=== PATIENT | female | born 1965 | race African-American/Black ===

== ENCOUNTER 2018-05-14 13:18 | Inpatient (IN) | payer OTHER ==
[~2018-05-14] VITALS: Ht 157.5 cm; Wt 103.9 kg
[2018-05-14] MEDS: POTASSIUM CHLORIDE 10 MEQ TABLET.ER. PO SCH ×2 (08:00→17:00)
[~2018-05-14 13:18] MED LIST: [UNRECOGNIZED DRUG - REMARK]
[2018-05-14 19:03] VITALS: BP 145/104
[2018-05-14] MEDS ORDERED: LISI1TAB5 PO (19:46)
[2018-05-14] MEDS ORDERED: FUROSEMIDE 40 MG/4 ML VIAL. IVP ONE (21:15)
--- NOTE | 2018-05-14 21:17 | EKG ---
[facility] [address] [place] [address] Test Date: 2018-05-14 Test Time: 21:13:06 Pat Name: DANETTE VILLALBA Department: Room: 262 1 Gender: M City Driver: OBED : 1965 Requested By: KYLAH WALKER Order Number: [id number] Reading MD: Randy Parekh MD Measurements Intervals Gunter Rate: 115 P: 34 DC: 104 QRS: 64 QRSD: 78 T: -68 QT: 358 QTc: 497 Interpretive Statements SINUS TACHYCARDIA LEFT ATRIAL ABNORMALITY Electronically Signed On 05-26-2018 21:27:34 CDT by Randy Parekh MD
[2018-05-14 22:01] LABS: BASO # 0.1 x10^3/uL (0.0-0.2); BASO % 1 % (0-3); EOS # 0.1 x10^3/uL (0.0-0.7); EOS % 2 % (0-3); HEMATOCRIT 39.2 % (39.0-53.0); HEMOGLOBIN 12.1 g/dL (13.0-17.5); LYMPH # 1.9 x10^3/uL (1.0-4.8); LYMPH % 35 % (24-48); MEAN CORPUSCULAR HEMOGLOBIN 24 pg (25-35); MEAN CORPUSCULAR HGB CONC 31 g/dL (31-37); MEAN CORPUSCULAR VOLUME 77 fL (79-100); MONO # 0.6 x10^3/uL (0.0-1.1); MONO % 10 % (0-9); NEUT # 2.7 x10^3uL (1.8-7.7); NEUT % 51 % (31-73); PLATELET COUNT 187 x10^3/uL (140-400); RED BLOOD COUNT 5.11 x10^6/uL (4.30-5.70); WHITE BLOOD COUNT 5.3 x10^3/uL (4.0-11.0)
[2018-05-14 22:19] LABS: ALBUMIN 2.1 g/dL (3.4-5.0); ALBUMIN/GLOBULIN RATIO 0.7 (1.0-1.7); CALCIUM 8.2 mg/dL (8.5-10.1); CREATININE 0.8 mg/dL (0.7-1.3); GFR 122.4; POTASSIUM 3.6 mmol/L (3.5-5.1); TOTAL BILIRUBIN 0.6 mg/dL (0.2-1.0); TOTAL PROTEIN 5.3 g/dL (6.4-8.2)
[2018-05-14 22:49] VITALS: BP 147/103
--- NOTE | 2018-05-14 23:25 | NUR ---
Patient had a 26 beat of tachycardia and contacted Dr. Hickman at [phone] and no new orders and continue as protocol.
[2018-05-15 03:23] VITALS: BP 142/101
[2018-05-15 05:11] LABS: CALCIUM 8.3 mg/dL (8.5-10.1); CREATININE 0.8 mg/dL (0.7-1.3); GFR 122.4; POTASSIUM 3.8 mmol/L (3.5-5.1)
[2018-05-15 07:59] VITALS: BP 162/99
[2018-05-15] MEDS: POTASSIUM CHLORIDE 10 MEQ TABLET.ER. PO SCH ×3 (08:00→16:41)
[2018-05-15] MEDS: LISINOPRIL 10 MG TABLET PO SCH (08:32)
[2018-05-15] MEDS: FUROSEMIDE 20 MG/2 ML VIAL. IVP SCH ×3 (08:33→16:41)
--- NOTE | 2018-05-15 08:42 | NUR ---
cleared eMAR from yesterday
--- NOTE | 2018-05-15 10:29 | PDOC ---
Provider Note Provider Note Pt seen.H&P dictated.#[id number]. KYLAH WALKER MD May 15, 2018 10:29
[2018-05-15] MEDS ORDERED: METOPROLOL TART IMMED RELEASE 25 MG TABLET. PO SCH (11:00)
[2018-05-15 11:10] VITALS: BP 149/86
[2018-05-15] MEDS: ENOXAPARIN 40 MG/0.4 ML SYRINGE. SQ SCH ×2 (11:14→20:51)
--- NOTE | 2018-05-15 11:32 | PDOC2 ---
PONCHO BALLARD LEGAL ADMINISTRATIVE ASSISTANT 05/15/18 1132: CARDIAC CONSULT DATE OF CONSULT Date of Consult DATE: 05/15/18 TIME: 11:29 REASON FOR CONSULT Reason for Consult: New onset CHF REFERRING PHYSICIAN Referring Physician: Dr. Prakash SOURCE Source: Chart review, Patient HISTORY OF PRESENT ILLNESS HISTORY OF PRESENT ILLNESS This is a 52 yo female who presented as a direct admit from Dr. Prakash secondary to shortness of breath. Patient reports having significant lower extremity swelling for the last couple of weeks. Has progressively worsened. No has edema in her upper thighs and abdomen. Denies any chest pain. Has been experiencing orthopnea and ABEBE for the last couple of weeks. Denies any SOA sitting up at rest. No dizziness, diaphoresis, palpitations, or nausea/ vomiting. No history of heart disease or recent illness/fevers. PAST MEDICAL HISTORY Cardiovascular: HTN Pulmonary: No pertinent hx CENTRAL NERVOUS SYSTEM: Other (no pertinent hx) GI: No pertinent hx Heme/Onc: No pertinent hx Hepatobiliary: No pertinent hx Psych: No pertinent hx Musculoskeletal: Other (no pertinent hx) Rheumatologic: No pertinent hx Infectious disease: No pertinent hx ENT: No pertinent hx Renal/: No pertinent hx Endocrine: No pertinent hx Dermatology: No pertinent hx PAST SURGICAL HISTORY Past Surgical History: No pertinent history FAMILY HISTORY Family History: Hypertension SOCIAL HISTORY Smoke: No ALCOHOL: none Drugs: None Lives: with Family CURRENT MEDICATIONS CURRENT MEDICATIONS Current Medications Medications (Trade) Dose Ordered Sig/Cindy Route PRN Reason Start Time Stop Time Status Last Admin Dose Admin Furosemide (Lasix) 40 mg 1X ONCE IVP 05/14/18 21:15 05/14/18 21:16 DC 05/14/18 21:48 Furosemide (Lasix) 20 mg BID92 IVP 05/15/18 09:00 05/15/18 08:33 Lisinopril (Prinivil) 10 mg DAILY PO 05/15/18 09:00 05/15/18 08:32 Metoprolol Tartrate (Lopressor) 25 mg BID PO 05/15/18 11:00 05/15/18 11:14 Enoxaparin Sodium (Lovenox 40mg Syringe) 40 mg BID SQ 05/15/18 11:00 05/15/18 11:14 ALLERGIES ALLERGIES: Coded Allergies: No Known Drug Allergies (Unverified , 04/29/14) ROS Review of System 14 point ROS conducted with pertinent positives noted above in HPI. PHYSICAL EXAM General: Alert, Oriented X3, Cooperative, No acute distress HEENT: Atraumatic Lungs: Other (diminished bases) Heart: Regular rate, Normal S1, Normal S2, Other (+ JVD, 2/6 systolic murmur ) Abdomen: Other (ascites) Extremities: Other (2+ bilateal LE edema to thigh level) Skin: No significant lesion Neuro: Normal speech, Sensation intact Psych/Mental Status: Mental status NL, Mood NL MUSCULOSKELETAL: No deformity VITALS VITALS Vital Signs Date Time Temp Pulse Resp B/P (MAP) Pulse Ox O2 Delivery O2 Flow Rate FiO2 05/15/18 11:14 114 149/86 05/15/18 11:10 97.7 22 97 Room Air 97.7 LABS Lab: Laboratory Tests Test 05/14/18 21:03 05/14/18 21:30 05/15/18 04:20 Glucose (Fingerstick) 101 mg/dL (70-99) White Blood Count 5.3 x10^3/uL (4.0-11.0) Red Blood Count 5.11 x10^6/uL (4.30-5.70) Hemoglobin 12.1 g/dL (13.0-17.5) Hematocrit 39.2 % (39.0-53.0) Mean Corpuscular Volume 77 fL (79-100) Mean Corpuscular Hemoglobin 24 pg (25-35) Mean Corpuscular Hemoglobin Concent 31 g/dL (31-37) Red Cell Distribution Width 18.0 % (11.5-14.5) Platelet Count 187 x10^3/uL (140-400) Neutrophils (%) (Auto) 51 % (31-73) Lymphocytes (%) (Auto) 35 % (24-48) Monocytes (%) (Auto) 10 % (0-9) Eosinophils (%) (Auto) 2 % (0-3) Basophils (%) (Auto) 1 % (0-3) Neutrophils # (Auto) 2.7 x10^3uL (1.8-7.7) Lymphocytes # (Auto) 1.9 x10^3/uL (1.0-4.8) Monocytes # (Auto) 0.6 x10^3/uL (0.0-1.1) Eosinophils # (Auto) 0.1 x10^3/uL (0.0-0.7) Basophils # (Auto) 0.1 x10^3/uL (0.0-0.2) Sodium Level 146 mmol/L (136-145) 150 mmol/L (136-145) Potassium Level 3.6 mmol/L (3.5-5.1) 3.8 mmol/L (3.5-5.1) Chloride Level 111 mmol/L (98-107) 113 mmol/L (98-107) Carbon Dioxide Level 29 mmol/L (21-32) 32 mmol/L (21-32) Anion Gap 6 (6-14) 5 (6-14) Blood Urea Nitrogen 14 mg/dL (8-26) 12 mg/dL (8-26) Creatinine 0.8 mg/dL (0.7-1.3) 0.8 mg/dL (0.7-1.3) Estimated GFR (Cockcroft-Gault) 122.4 122.4 BUN/Creatinine Ratio 18 (6-20) Glucose Level 105 mg/dL (70-99) 90 mg/dL (70-99) Calcium Level 8.2 mg/dL (8.5-10.1) 8.3 mg/dL (8.5-10.1) Magnesium Level 1.9 mg/dL (1.8-2.4) Total Bilirubin 0.6 mg/dL (0.2-1.0) Aspartate Amino Transf (AST/SGOT) 46 U/L (15-37) Alanine Aminotransferase (ALT/SGPT) 55 U/L (16-63) Alkaline Phosphatase 61 U/L (46-116) BS-Qbx-F-Type Natriuretic Peptide 6306 pg/mL (0-124) Total Protein 5.3 g/dL (6.4-8.2) Albumin 2.1 g/dL (3.4-5.0) Albumin/Globulin Ratio 0.7 (1.0-1.7) Thyroid Stimulating Hormone (TSH) 1.030 uIU/mL (0.358-3.74) ASSESSMENT/PLAN ASSESSMENT/PLAN 1. Acute systolic HF 2. Cardiomyopathy (new finiding); Preliminary echo noted significantly depressed LV systolic function 3. Hypertension; mildly elevated 4. Tachycardia, sinus Recommendations ASA Diuresis check lipids Add BB NPO Given new finding of LV dysfunction, recommend cardiac cath to r/o ischemic etiology of CMP. Discussed r/b/a with patient and she is agreeable. Will proceed with later this afternoon GABBY NEVES MD 05/15/182: CARDIAC CONSULT ASSESSMENT/PLAN ASSESSMENT/PLAN Patient seen and examined. Agree with above nurse practitioner note with the following comments 52-year-old woman presenting with new onset heart failure symptoms. She has significant mitral and tricuspid regurgitation. Coronary angiogram was unremarkable. Plan for optimization of medical therapy and likely outpatient referral to [facility] for advanced heart failure therapies. PONCHO BALLARD APRN May 15, 2018 11:32 GABBY NEVES MD May 15, 2018 18:12
[2018-05-15] MEDS: ASPIRIN ENTERIC COATED 81 MG TABLET.DR. PO SCH (11:51)
--- NOTE | 2018-05-15 12:32 | CARD ---
MR#: [id number] Date of Study: 05/15/2018 Ordering Physician: KYLAH WALKER, Referring Physician: KYLAH WALKER, Tech: Isamar Mc RDCS APPROVED REPORT EXAM: Two-dimensional and M-mode echocardiogram with Doppler and color Doppler. Other Information Quality : Good INDICATION Peripheral Edema Congestive Heart Failure RISK FACTORS Obesity 2D DIMENSIONS RVDd4.2 (2.9-3.5cm)Left Atrium(2D)5.7 (1.6-4.0cm) IVSd1.0 (0.7-1.1cm)Aortic Root(2D)2.4 (2.0-3.7cm) LVDd6.0 (3.9-5.9cm)LVOT Diameter2.0 (1.8-2.4cm) PWd1.4 (0.7-1.1cm)LVDs5.6 (2.5-4.0cm) FS (%) 6.7 %SV26.3 ml LVEF(%)14.7 (>50%) Aortic Valve AoV Peak Hans.155.6cm/sAoV VTI19.5cm AO Peak GR.9.7mmHgLVOT Peak Hans.112.0cm/s AO Mean GR.6mmHgAVA (VMAX)2.31cm2 ARTURO (VTI)2.43bn8DG P 1/2 Owkb302qh Mitral Valve MV E Biiwalvt044.1cm/sMV DECEL JVKG53xo MV A Fsoctupv70.4cm/sE/A Ratio1.5 Tricuspid Valve TR P. Cuzeinym287lq/sRAP YZDGVJQL16juGs TR Peak Gr.56ysZuGYDU99zpHo Pulmonary Vein S1 Hfunzrku40.6cm/sD2 Gstrhfhh06.1cm/s LEFT VENTRICLE The Left Ventricle is moderately dilated. There is mild concentric left ventricular hypertrophy. Left ventricle ejection fraction is severely impaired. The Ejection Fraction is 10-15%. There is severe g lobal hypokinesis of the left ventricle. Tissue Doppler imaging reveals severe left ventricular diast olic dysfunction. RIGHT VENTRICLE The right ventricle is moderately dilated. The right ventricular systolic function is normal. ATRIA The left atrium is severely dilated. The right atrium is moderately dilated. The interatrial septum i s intact with no evidence for an atrial septal defect or patent foramen ovale as noted on 2-D or Dopp ler imaging. AORTIC VALVE The aortic valve is normal in structure and function. Doppler and Color Flow revealed mild aortic reg urgitation. There is no significant aortic valvular stenosis. MITRAL VALVE The mitral valve is normal in structure and function. There is no evidence of mitral valve prolapse. There is no mitral valve stenosis. Doppler and Color-flow revealed severe mitral regurgitation. TRICUSPID VALVE The tricuspid valve is normal in structure and function. Doppler and Color Flow revealed moderate tri cuspid regurgitation. There is severe pulmonary hypertension. The PA pressure was estimated at 73 mmH g. There is no tricuspid valve stenosis. PULMONIC VALVE The pulmonic valve is not well visualized. Doppler and Color Flow revealed mild pulmonic valvular reg urgitation. There is no pulmonic valvular stenosis. GREAT VESSELS The aortic root is normal in size. The ascending aorta is normal in size. The IVC is dilated and muna apses <50% with inspiration. PERICARDIAL EFFUSION There is no evidence of significant pericardial effusion. Critical Notification Physician Notified Date: 05/15/2018 Time: 11:28 Physician Name:ASH Don Critical Value: Yes <Conclusion> Left ventricle ejection fraction is severely impaired. The Ejection Fraction is 10-15%. The Left Ventricle is moderately dilated. Doppler and Color-flow revealed severe mitral regurgitation. Doppler and Color Flow revealed moderate tricuspid regurgitation. There is severe pulmonary hypertens ion. The PA pressure was estimated at 73 mmHg. Signed by : Randy Parekh, Electronically Approved : 05/15/2018 12:31:28
--- NOTE | 2018-05-15 13:23 | RAD ---
EXAM: Chest, 2 views. HISTORY: Congestive heart failure. COMPARISON: 04/29/2014 FINDINGS: 2 views of the chest are obtained. There is diffuse central predominant increased interstitial opacity. There is no pleural effusion or pneumothorax. There is cardiomegaly. IMPRESSION: Diffuse increased central predominant interstitial opacity and enlargement of the cardiac silhouette due to pulmonary congestion. Electronically signed by: Rupali Chilel MD (05/15/2018 1:20 PM) [place] [id number]
[2018-05-15 14:24] LABS: PROTHROMBIN TIME PATIENT 14.4 SEC (11.7-14.0)
--- NOTE | 2018-05-15 14:34 | NUR ---
SS following for discharge planning. SS reviewed pt chart. Pt is from home with spouse and is currently on room air. No discharge needs noted at this time. SS will continue to follow for pending discharge needs.
[2018-05-15] MEDS ORDERED: LIDOCAINE 1% PF 2 ML VIAL. ONE (14:56)
[2018-05-15] MEDS ORDERED: IOHEXOL 300 MG/ML 100ML VIAL. ONE (14:57)
[2018-05-15] MEDS ORDERED: VERAPAMIL 5 MG/2 ML VIAL. ONE (15:05)
[2018-05-15] MEDS ORDERED: fentaNYL PF VIAL 100 MCG/2 ML VIAL ONE (15:05)
[2018-05-15] MEDS ORDERED: NITROGLYCERIN 200 MCG/2 ML SYRINGE FOR CATH/VASC LAB. ONE (15:05)
[2018-05-15] MEDS ORDERED: MIDAZOLAM HCL/PF 2 MG/2 ML VIAL. ONE (15:05)
[2018-05-15] MEDS ORDERED: HEPARIN for IV BOLUS 10,000 UNIT/10 ML VIAL. ONE (15:05)
[2018-05-15] MEDS ORDERED: IODIXANOL 320 MG/ML 100 ML VIAL. IART ONE (15:30)
[2018-05-15] MEDS ORDERED: LIDOCAINE 1% PF 2 ML VIAL. INJ ONE (15:30)
[2018-05-15] MEDS ORDERED: fentaNYL PF VIAL 100 MCG/2 ML VIAL IV ONE (15:30)
[2018-05-15] MEDS ORDERED: HEPARIN for IV BOLUS 10,000 UNIT/10 ML VIAL. IART ONE (15:30)
[2018-05-15] MEDS ORDERED: CONTRAST GIVEN. MC PRN (15:30)
[2018-05-15] MEDS ORDERED: MIDAZOLAM HCL/PF 2 MG/2 ML VIAL. IV ONE (15:30)
[2018-05-15] MEDS ORDERED: NITROGLYCERIN 200 MCG/2 ML SYRINGE FOR CATH/VASC LAB. IART ONE (15:30)
[2018-05-15] MEDS ORDERED: VERAPAMIL 5 MG/2 ML VIAL. IART ONE (15:30)
[2018-05-15 15:37] VITALS: BP 125/87
--- NOTE | 2018-05-15 15:57 | PDOC ---
MODERATE SEDATION ASSESSMENT RISKS/ALTERNATIVES Risks/Alternatives Risks and alternatives of this type of sedation and procedure discussed with: RISK/ALTERNATIVES: Patient H & P ON CHART H & P H & P on chart and reviewed for co-morbid conditions and appropriate labs. H&P ON CHART: Yes STATUS PREG STATUS ASSESSED: N/A MEDS/ALLERGIES REVIEWED Meds/Allergies Reviewed Medications and Allergies including time and route of recently administered narcotics and sedatives. MEDS/ALLERGIES REVIEWED: Yes ASA RATING ASA RATING: III AIRWAY ASSESSMENT Airway Assessment Airway patency, oral function limitations, presence of caps, crowns, dentures, partials, and ability to extend neck assessed. AIRWAY ASSESSMENT: Yes MALLAMPATI SCORE MALLAMPATI SCORE: II PRE-SEDATION ASSESSMENT PRE-SEDATION ASSESSMENT: Yes (late entry) GABBY NEVES MD May 15, 2018 15:57
[2018-05-15] MEDS ORDERED: FUROSEMIDE 40 MG/4 ML VIAL. IVP ONE (16:00)
[2018-05-15] MEDS ORDERED: 0.9 % SODIUM CHLORIDE 10 ML DISP.SYRIN. IV PRN (16:00)
[2018-05-15] MEDS ORDERED: NITROGLYCERIN SUBLINGUAL 0.4 MG BOTTLE OF 25. SL PRN (16:00)
--- NOTE | 2018-05-15 16:27 | NUR ---
pt already has IVP lasix on board. no need for this 1x dose
--- NOTE | 2018-05-15 16:30 | NUR ---
pt returned to floor at 1545 via bed in stable condition. pt is alert and oriented. pt is not complaining of any pain at this time. pt has TR band on right wrist. pt is set up on frequent vital signs. will continue to monitor.
[2018-05-15] MEDS: SPIRONOLACTONE 25 MG TABLET PO SCH (16:41)
--- NOTE | 2018-05-15 17:27 | CARD ---
MR#: [id number] Date of Study: 05/15/2018 Ordering Physician: PONCHO BALLARD, Referring Physician: KYLAH WALKER Tech: RT Tirso (R) APPROVED REPORT Technologist: RT Tirso (R) Nurse: Alis Shipman R.N. Procedure(s) performed: Moderate sedation: 24 minutes C, Coronary angiography HISTORY : The patient is a 52 year-old female with a history of . INDICATION The indication(s) include : valvular heart disease, acute systolic heart failure. [facility] Clinical Frailty Scale [facility] Clinical Frailty Scale: Severely Frail Heart Failure Heart Failure: Yes If Yes, Newly Diagnosed: Yes If Yes, HF Type: Diastolic Systolic If Yes, NYHA Class: Class III CASE TECHNIQUE During this case, Fluoroscopy and low osmolar contrast were used for imaging. PROCEDURE NARRATIVE INFORMED CONSENT: After explaining the risks and benefits of the procedure and alternatives, informed consent was obtained. The patient was brought electively to the cardiac catheterization lab. A timeout was performed confi rming the patient's name, date of , procedure, and site of procedure. All necessary personnel w ere wearing the appropriate protective equipment and radiation monitor devices. (See nursing notes for medications administered). ACCESS: The right wrist was sterilely prepped and draped in the usual fashion. The right wrist was infiltrat ed with 1 mL of 2% lidocaine for subcutaneous anesthesia. A 6 German Terumo glide sheath was inserte d into the right radial artery without difficulty. CORONARY ANGIOGRAPHY: Right and left coronary angiography was performed using a 6Fr TIG 4.0 catheter. Left ventricular en d diastolic pressure was obtained with a pigtail catheter and pullback was performed after left ventr iculography. All catheter exchanges and advancements were performed over a guidewire. CLOSURE: At case completion the right radial sheath was removed and a Terumo radial band was applied with 13 m l of air. COMPLICATIONS: The patient tolerated the procedure well and there were no immediate complications. FINDINGS: HEMODYNAMICS: LVEDP 30 mm Hg No gradient on LV to aortic pullback. AO: 110/70 LEFT VENTRICULOGRAM: Deferred due to known severe LV dysfunction. CORONARY ANGIOGRAPHY: LM is a large caliber vessel with normal angiographic appearance. LAD is a large caliber vessel with normal angiographic appearance. D1 is a moderate caliber vessel with normal angiographic apeparance. LCx is a moderate caliber non-dominant vessel with normal angiographic appearance. OM1 is a moderate caliber vessel with normal angiographic appearance. RCA is a large caliber dominant vessel with normal angiographic appearance. RPDA and RPL are moderate caliber vessels with normal angiographic appearance. Conclusion 1. Severely elevated left sided filling pressures. 2. No significant coronary disease. Recommendations Aggressive heart failure medical regimen Due to severe valvular disease, she may benefit from out patient HF clinic evaluation for considerati on of MitraClip. Signed by : Randy Parekh, Electronically Approved : 05/15/2018 17:27:07
[2018-05-15] MEDS: METOPROLOL SUCC 24HR ER 50 MG TAB.ER.24H. PO SCH (18:15)
--- NOTE | 2018-05-15 18:20 | HP ---
ADMIT DATE: 05/14/2018 REASON FOR ADMISSION TO THE HOSPITAL: Shortness of breath, swelling of lower extremities, 30-pound weight gain. HISTORY OF PRESENT ILLNESS: The patient is a 52-year-old female. The patient had not seen me in the office for last 3 years and she came to the office with complaints of shortness of breath, weight gain at least 30 pounds, has severe swelling in the lower extremities and she was complaining of shortness of breath, no chest pain, was admitted to the hospital for congestive heart failure further workup. PAST MEDICAL HISTORY: Hypertension, arthritis. PAST SURGICAL HISTORY: No major surgical history. ALLERGIES: None. MEDICATIONS: She has not taken any medication for the last 3 years. PERSONAL HISTORY: Denies smoking, alcohol, drug abuse. FAMILY HISTORY: Positive for hypertension, heart disease. REVIEW OF SYSTEMS: Complains of shortness of breath. Denies any chest pain. Some swelling of lower extremities, hard for her to walk around and sleep at nighttime. PHYSICAL EXAMINATION: VITAL SIGNS: At the time of admission shows temperature 97, pulse 124, respirations 16, blood pressure 145/104, 94% on room air. HEENT: Head is atraumatic. Pupils equal. Oral cavity: No congestion. NECK: Supple. Thyroid not enlarged. JVD not elevated. CHEST: Symmetrical. CARDIOVASCULAR: S1, S2 with a 3/6 murmur at the base of the heart. LUNGS: Crackles at the base. ABDOMEN: Soft, no mass palpable. EXTERNAL GENITALIA: No Cantu. RECTAL: Deferred. EXTREMITIES: 2 to 3+ edema all the way up to the thighs starting from the feet, pitting. NEUROLOGIC: No focal deficits noted. Moves all extremities. LABORATORY DATA: Shows a white count of 5, hemoglobin 12, platelets 187. INR is 1.2. Electrolytes show sodium 146, potassium 3.6, chloride 111, bicarbonate 29, BUN 14, creatinine 0.8, glucose 105 and TSH 1.0. BNP was more than 6000. Chest x-ray shows congestive heart failure. FINAL IMPRESSION: 1. New onset of congestive heart failure. 2. A 30-pound weight gain with 3+ edema and shortness of breath. PLAN: The patient was admitted to the hospital for aggressive evaluation. Echocardiogram, Cardiology consult, chest x-ray, EKG, IV Lasix and see how the patient's condition improves. DVT prevention with Lovenox. KYLAH WALKER MD DR: PAUL/diony JOB#: [id number] / [id number]
[2018-05-15 19:00] VITALS: BP 112/81
[2018-05-15 23:00] VITALS: BP 125/60
[2018-05-16 00:01] VITALS: BP 125/60
--- NOTE | 2018-05-16 02:41 | RAD ---
Bilateral lower extremity venous Doppler dated 05/15/2018. No comparison available. Clinical indication: Edema and swelling. FINDINGS: Grayscale, color-flow and spectral waveform analysis performed to include the deep venous system of both lower extremity. Normal compressibility, phasicity and augmentation of flow throughout. No filling defects are seen. IMPRESSION: No evidence of lower extremity deep vein thrombosis. Electronically signed by: Raghav Griggs MD (05/16/2018 2:38 AM) [facility] [place]
[2018-05-16 03:00] VITALS: BP 124/85
[2018-05-16 05:52] LABS: CREATININE 0.8 mg/dL (0.6-1.0); GFR 90.8
[2018-05-16 07:00] VITALS: BP 123/79
[2018-05-16] MEDS: METOPROLOL SUCC 24HR ER 50 MG TAB.ER.24H. PO SCH (08:27)
[2018-05-16] MEDS: POTASSIUM CHLORIDE 10 MEQ TABLET.ER. PO SCH (08:27)
[2018-05-16] MEDS: ASPIRIN ENTERIC COATED 81 MG TABLET.DR. PO SCH (08:27)
[2018-05-16] MEDS: SPIRONOLACTONE 25 MG TABLET PO SCH (08:28)
[2018-05-16] MEDS: LISINOPRIL 10 MG TABLET PO SCH (08:28)
[2018-05-16] MEDS: ENOXAPARIN 40 MG/0.4 ML SYRINGE. SQ SCH (08:31)
[2018-05-16] MEDS: FUROSEMIDE 20 MG/2 ML VIAL. IVP SCH (08:31)
[2018-05-16 11:05] VITALS: BP 125/81
--- NOTE | 2018-05-16 11:41 | PDOC ---
PROGRESS NOTES Subjective Subjective feels better ,want to go home Objective Objective Vital Signs Date Time Temp Pulse Resp B/P (MAP) Pulse Ox O2 Delivery O2 Flow Rate FiO2 05/16/18 11:05 97.5 95 20 125/81 (96) 94 Room Air 97.5 05/16/18 07:00 2.0 Intake and Output 05/16/18 07:00 Intake Total 1440 ml Balance 1440 ml Intake Oral 1440 ml # Voids 5 Physical Exam Abdomen: Other (ascites) Heart: Regular rate, Normal S1, Normal S2, Other (+ JVD, 2/6 systolic murmur ) Extremities: Other (2+ bilateal LE edema) General: Alert, Oriented X3, Cooperative, No acute distress HEENT: Atraumatic Lungs: Other (diminished bases) MUSCULOSKELETAL: No deformity Neuro: Normal speech, Sensation intact Psych/Mental Status: Mental status NL, Mood NL Skin: No significant lesion Assessment Assessment FINAL IMPRESSION: 1. New onset of congestive heart failure. 2. A 30-pound weight gain with 3+ edema and shortness of breath. PLAN: cardiac cath normal coronaries. severe MR.on ECHO ,inc PA pressure medical management. d/c home today. echo 20% EJF Comment Review of Relevant I have reviewed the following items whit (where applicable) has been applied. Labs Laboratory Tests Test 05/15/18 13:45 05/16/18 04:30 Prothrombin Time 14.4 SEC (11.7-14.0) Prothromb Time International Ratio 1.2 (0.8-1.1) Sodium Level 140 mmol/L (136-145) Potassium Level 4.0 mmol/L (3.5-5.1) Chloride Level 109 mmol/L (98-107) Carbon Dioxide Level 22 mmol/L (21-32) Anion Gap 9 (6-14) Blood Urea Nitrogen 13 mg/dL (7-20) Creatinine 0.8 mg/dL (0.6-1.0) Estimated GFR (Cockcroft-Gault) 90.8 Glucose Level 97 mg/dL (70-99) Calcium Level 8.0 mg/dL (8.5-10.1) Triglycerides Level 67 mg/dL (0-150) Cholesterol Level 125 mg/dL (0-200) LDL Cholesterol, Calculated 71 mg/dL (0-100) VLDL Cholesterol, Calculated 13 mg/dL (0-40) Non-HDL Cholesterol Calculated 84 mg/dL (0-129) HDL Cholesterol 41 mg/dL (40-60) Cholesterol/HDL Ratio 3.0 Medications Current Medications Aspirin (Ecotrin) 81 mg [id number] PO Last administered on 05/16/18at 08:27; Start 05/15/18 at 12:00 Fentanyl Citrate (Fentanyl 2ml Vial) 50 mcg 1X ONCE IV Last administered on 05/15/18at 15:31; Start 05/15/18 at 15:30; Stop 05/15/18 at 15:31; Status DC Fentanyl Citrate (Fentanyl 2ml Vial) 100 mcg STK-MED ONCE .ROUTE ; Start at 15:05; Stop 05/15/18 at 15:06; Status DC Furosemide (Lasix) 40 mg 1X ONCE IVP ; Start 05/15/18 at 16:00; Stop 05/15/18 at 16:01; Status DC Furosemide (Lasix) 40 mg [id number] IVP Last administered on 05/16/18at 08:31; Start 05/15/18 at 16:00 Heparin Sodium (Porcine) (Heparin Sodium) 2,500 unit 1X ONCE IART Last administered on 05/15/18at 15:32; Start 05/15/18 at 15:30; Stop 05/15/18 at 15:31; Status DC Heparin Sodium (Porcine) (Heparin Sodium) 10,000 unit STK-MED ONCE .ROUTE ; Start 05/15/18 at 15:05; Stop 05/15/18 at 15:06; Status DC Heparin Sodium/ Sodium Chloride 1,000 ml @ As Directed STK-MED ONCE .ROUTE ; Start 05/15/18 at 14:57; Stop 05/15/18 at 14:58; Status DC Heparin Sodium/ Sodium Chloride (HEPARIN for ARTERIAL LINE FLUSH) 1,000 unit 1X ONCE IART Last administered on 05/15/18at 15:29; Start 05/15/18 at 15:30; Stop 05/15/18 at 15:31; Status DC Heparin Sodium/ Sodium Chloride (HEPARIN for ARTERIAL LINE FLUSH) 1,000 unit 1X ONCE IART Last administered on 05/15/18at 15:29; Start 05/15/18 at 15:30; Stop 05/15/18 at 15:31; Status DC Info (CONTRAST GIVEN -- Rx MONITORING) 1 each PRN DAILY PRN MC SEE COMMENTS; Start 05/15/18 at 15:30; Stop 05/17/18 at 15:29 Iodixanol (Visipaque 320) 100 ml 1X ONCE IART Last administered on 05/15/18at 15 :29; Start 05/15/18 at 15:30; Stop 05/15/18 at 15:31; Status DC Iohexol (Omnipaque 300 Mg/ml) 100 ml STK-MED ONCE .ROUTE ; Start 05/15/18 at 14: 57; Stop 05/15/18 at 14:58; Status DC Lidocaine HCl (Xylocaine-Mpf 1% 2ml Vial) 2 ml 1X ONCE INJ Last administered on 05/15/18at 15:30; Start 05/15/18 at 15:30; Stop 05/15/18 at 15:31; Status DC Lidocaine HCl (Xylocaine-Mpf 1% 2ml Vial) 2 ml STK-MED ONCE .ROUTE ; Start at 14:56; Stop 05/15/18 at 14:57; Status DC Metoprolol Succinate (Toprol Xl) 50 mg DAILY PO Last administered on 05/16/18at 08:27; Start 05/15/18 at 18:00 Midazolam HCl (Versed) 1 mg 1X ONCE IV Last administered on 05/15/18at 15:30; Start 05/15/18 at 15:30; Stop 05/15/18 at 15:31; Status DC Midazolam HCl (Versed) 2 mg STK-MED ONCE .ROUTE ; Start 05/15/18 at 15:05; Stop 05/15/18 at 15:06; Status DC Nitroglycerin (Nitroglycerin) 200 mcg 1X ONCE IART Last administered on at 15:29; Start 05/15/18 at 15:30; Stop 05/15/18 at 15:31; Status DC Nitroglycerin (Nitroglycerin) 200 mcg STK-MED ONCE .ROUTE ; Start 05/15/18 at 15: 05; Stop 05/15/18 at 15:06; Status DC Nitroglycerin (Nitrostat) 0.4 mg PRN Q5MIN PRN SL CHEST PAIN; Start 05/15/18 at 16:00; Stop 05/15/18 at 16:04; Status DC Sodium Chloride (Normal Saline Flush) 3 ml QSHIFT PRN IV AFTER MEDS AND BLOOD DRAWS; Start 05/15/18 at 16:00 Spironolactone (Aldactone) 25 mg DAILY PO Last administered on 05/16/18at 08:28; Start 05/15/18 at 16:00 Verapamil HCl (Verapamil) 2.5 mg 1X ONCE IART Last administered on 05/15/18at 15 :31; Start 05/15/18 at 15:30; Stop 05/15/18 at 15:31; Status DC Verapamil HCl (Verapamil) 5 mg STK-MED ONCE .ROUTE ; Start 05/15/18 at 15:05; Stop 05/15/18 at 15:06; Status DC Vitals/I & O Vital Sign - Last 24 Hours 05/15/18 05/15/18 05/15/18 05/15/18 15:31 15:31 15:37 18:15 Pulse 88 87 87 Resp 21 22 B/P (MAP) 125/87 Pulse Ox 95 92 O2 Delivery Nasal Cannula Nasal Cannula O2 Flow Rate 2.0 2.0 05/15/18 05/15/18 05/15/18 05/16/18 19:00 19:58 23:00 03:00 Temp 98.2 97.7 97.8 98.2 97.7 97.8 Pulse 101 93 64 Resp 18 18 18 B/P (MAP) 112/81 (91) 125/60 (81) 124/85 (98) Pulse Ox 94 99 99 O2 Delivery Room Air Room Air Room Air Room Air 05/16/18 05/16/18 05/16/18 05/16/18 07:00 08:00 08:27 08:28 Temp 97.4 97.4 Pulse 95 64 64 Resp 20 B/P (MAP) 123/79 (94) 123/79 123/79 Pulse Ox 95 O2 Delivery Room Air Room Air O2 Flow Rate 2.0 05/16/18 11:05 Temp 97.5 97.5 Pulse 95 Resp 20 B/P (MAP) 125/81 (96) Pulse Ox 94 O2 Delivery Room Air Intake and Output 05/15/18 05/15/18 05/16/18 15:00 23:00 07:00 Intake Total 1060 ml 380 ml Balance 1060 ml 380 ml KODURI,VINAYA K MD May 16, 2018 11:40
[2018-05-16] MEDS ORDERED: LISI10TA2 PO (11:45)
[2018-05-16] MEDS ORDERED: FURO-69 PO (11:45)
[2018-05-16] MEDS ORDERED: METO50TA4 PO (11:45)
[2018-05-16] MEDS ORDERED: ASPI-612 PO (11:45)
[2018-05-16] MEDS ORDERED: SPIR25TA PO (11:45)
--- NOTE | 2018-05-16 12:49 | PDOC ---
CARDIOLOGY PROGRESS NOTE SUBJECTIVE: No acute events. Reports continued swelling and dyspnea OBJECTIVE: Vital SIgns: Vital Signs Date Time Temp Pulse Resp B/P (MAP) Pulse Ox O2 Delivery O2 Flow Rate FiO2 05/16/18 11:05 97.5 95 20 125/81 (96) 94 Room Air 97.5 05/16/18 07:00 2.0 I & O Intake and Output 05/16/18 06:59 Intake Total 1440 ml Balance 1440 ml Intake Oral 1440 ml # Voids 5 Objective: She is up and walking in the room 3+ LE edema present Protrubent obese abdomen CURRENT MEDICATIONS: Toprol XL Lisinopril spironolactone DIAGNOSTIC TESTING: Cr stable ASSESSMENT: 1. Acute on chronic systolic HF likely due to valvular disease/NICM PLAN: 1. Patient wants to go home but would likely benefit from another day of inpt diuresis. 2. If being discharged, will start Lasix 40mg daily and f/u in the office in 1 week. 3. Will refer to [facility] on an outpt basis for Mitraclip/transplant eval. I discussed with the patient about 2L water restriction, daily weights, the gravity of her current situation. Will have nurse re-emphasize at [place]. GABBY NEVES MD May 16, 2018 12:49
--- NOTE | 2018-05-16 14:06 | NUR ---
Discharge Note: DARIUS VILLALBA [facility] Discharge instructions and discharge home medications reviewed with Patient and a copy given. All questions have been answered and understanding verbalized. Education was given to patient with her sister present. It is not clear how much the patient understands about her condition but her sister and I spoke with the patient for approximately 15 minutes about discharge plan and medications and the importance in continuing to follow up with Dr. Prakash and Dr. Parekh. She agreed with plan of care and is happy to leave.
[2018-05-17 00:12] LABS: HEMOGLOBIN A1C 6.1 % (4.8-5.6)
--- NOTE | 2018-05-21 12:00 | PDOC ---
Provider Note Provider Note Discharge summary dictated. #[id number] KYLAH WALKER MD May 21, 2018 12:00
--- NOTE | 2018-05-21 13:12 | DS ---
DATE OF DISCHARGE: 05/16/2018 REASON FOR ADMISSION TO THE HOSPITAL: New onset of congestive heart failure, 30-pound weight gain. CONSULTATIONS: Dr. Parekh. PROCEDURES DONE: Echocardiogram, cardiac catheterization. COMPLICATIONS NOTED: None. HOSPITAL COURSE: The patient is a 52-year-old female, has not seen for 3 years, came to me complaining of shortness of breath. She had anasarca, swelling, 30-pound weight gain. The patient was admitted to the hospital. Had echocardiogram, shows 20% ejection fraction, left ventricle was moderately dilated, severe mitral regurgitation, moderate tricuspid regurgitation. PA pressure was high at 73. The patient had a cardiac cath, which shows no significant coronary artery disease, elevated left-sided filling pressures and the patient was recommended medical treatment and the patient was discharged. FINAL DIAGNOSES: 1. New onset of acute systolic congestive heart failure. 2. Dilated cardiomyopathy, Non Ischemic. 3. Mitral regurgitation, severe. 4. Hypertension. 5. Morbid Obesity, BMI is 42. DISCHARGE MEDICATIONS: See MRAD. KYLAH WALKER MD DR: PAUL/diony JOB#: [id number] / [id number] SAEED
== END 2018-05-16 14:11 | disposition home or self-care (01) | DRG 287 ==
LOC: EDSEX 18:42 → 2 SOUTH 18:42
PROVIDERS: ADMIT Internal Medicine; ATTEND Internal Medicine
PROC: 4A023N7 Measurement of Cardiac Sampling and Pressure, Left Heart, Percutaneous Approach (ICD-10-PCS; principal; 2018-05-15)
PROC: B2111ZZ Fluoroscopy of Multiple Coronary Arteries using Low Osmolar Contrast (ICD-10-PCS; 2018-05-15)
DX: I11.0 Hypertensive heart disease with heart failure (principal); I42.9 Cardiomyopathy, unspecified; I50.23 Acute on chronic systolic (congestive) heart failure; I08.1 Rheumatic disorders of both mitral and tricuspid valves; M19.90 Unspecified osteoarthritis, unspecified site; Z82.49 Family history of ischemic heart disease and other diseases of the circulatory system; Z79.899 Other long term (current) drug therapy
CPT/HCPCS: 36415; 71046; 80048; 80053; 80061; 82962; 83036; 83735; 83880; 84443; 85025; 85610; 93005; 93306; 93458; 93970; 99152; 99153; C1769; C1892; J1644; J1650; J1940; J2250; J3010; J3490; Q9967

== ENCOUNTER 2018-06-20 20:54 | Inpatient (IN) | payer OTHER ==
[~2018-06-20] VITALS: Ht 177.8 cm; Wt 106.7 kg
[~2018-06-20 20:54] MED LIST changes: +ASPI-612 PO; +FURO-69 PO; +LISI10TA2 PO; +LISI1TAB5 PO; +METO50TA4 PO; +SPIR25TA PO
--- NOTE | 2018-06-20 21:40 | RAD ---
AP chest. HISTORY: Short of breath AP view was taken of the chest. The heart is markedly enlarged. There is mild pulmonary vascular congestion. There are no confluent infiltrates. There is a possible small right effusion. IMPRESSION: 1. Cardiomegaly. 2. Mild vascular congestion. Electronically signed by: Pollo Morelos MD (06/20/2018 9:38 PM) [id number]
--- NOTE | 2018-06-20 22:08 | PHYS DOC ---
Past Medical History Past Medical History: CHF, Diabetes-Type I, High Cholesterol, Hypertension Additional Past Medical Histor: dilated cardiomegaly Past Surgical History: Tubal ligation Alcohol Use: None Drug Use: None Adult General Chief Complaint Chief Complaint: SHORTNESS OF BREATH HPI HPI Patient is a 52 year old female who presents with increased shortness of breath and puffy hands. over the last week. She was recently diagnosed with CHF with an EF of 10-15%. She reports that in the last week she's noticed increased swelling in her hands and legs. She reports she has gained weight within the last week, increasing from 210 to 232 pounds. She states that sitting forward increases her shortness of breath. She reports that she is compliant with her diuretic regimen and all her medications. She reports diminished urine output. She denies CP, f/c/n/v, dysuria. Review of Systems Review of Systems Constitutional: Denies fever or chills [] Eyes: Denies change in visual acuity, redness, or eye pain [] HENT: Denies nasal congestion or sore throat [] Respiratory: Denies cough. Reports increased shortness of breath. [] Cardiovascular: No additional information not addressed in HPI [] GI: Denies abdominal pain, nausea, vomiting, bloody stools or diarrhea [] : Denies dysuria or hematuria [] Neurologic: Denies headache, focal weakness or sensory changes [] Endocrine: Denies polyuria or polydipsia [] All other systems were reviewed and found to be within normal limits, except as documented in this note. Current Medications Current Medications Current Medications Medications (Trade) Dose Ordered Sig/[facility] Start Time Stop Time Status Last Admin Dose Admin Furosemide (Lasix) 20 mg 1X ONCE 06/20/18 23:00 06/20/18 23:01 DC 06/20/18 22:35 20 MG Nitroglycerin (Nitro-Bid Oint) 1 inch 1X ONCE 06/20/18 23:00 06/20/18 23:01 DC 06/20/18 22:37 1 INCH see med list Allergies Allergies Allergies Coded Allergies Type Severity Reaction Last Updated Verified No Known Drug Allergies 04/29/14 No Physical Exam Physical Exam Constitutional: Well developed, well nourished, demonstrates severe shortness of breath with bending forward. [] HENT: Normocephalic, atraumatic, bilateral external ears normal, oropharynx moist, no oral exudates, nose normal. [] Eyes: PERRLA, EOMI, conjunctiva normal, no discharge. [] Neck: Normal range of motion, no tenderness, supple, no stridor. [] Cardiovascular: Tachycardic with regular rhythm and distant heart sounds, no definite murmur but exam was limited by the patient's comfort and also did have tachypnea and crackles THAT limited examination Lungs & Thorax: Severe shortness of breath and tachypnea with anterior bending at waist []crackles noted Abdomen: Distended, hard and firm to palpation, Bowel sounds normal, no tenderness, no masses, no pulsatile masses. [] Skin: Warm, dry, no erythema, no rash. [] Back: No tenderness, no CVA tenderness. [] Extremities: No tenderness, no cyanosis, no clubbing, ROM intact, non pitting edema b/l LE. (Anasarca noted[] Neurologic: Alert and oriented X 3, normal motor function, normal sensory function, no focal deficits noted. [] Psychologic: Affect normal, judgement normal, mood normal. [] Current Patient Data Vital Signs Vital Signs Date Time Temp Pulse Resp B/P (MAP) Pulse Ox O2 Delivery O2 Flow Rate FiO2 06/20/18 22:50 109 20 149/100 (116) 100 Nasal Cannula 3.0 06/20/18 21:00 98.3 98.3 Lab Values Laboratory Tests Test 06/20/18 21:42 White Blood Count 6.5 x10^3/uL (4.0-11.0) Red Blood Count 5.11 x10^6/uL (3.50-5.40) Hemoglobin 12.0 g/dL (12.0-15.5) Hematocrit 38.4 % (36.0-47.0) Mean Corpuscular Volume 75 fL (79-100) L Mean Corpuscular Hemoglobin 24 pg (25-35) L Mean Corpuscular Hemoglobin Concent 31 g/dL (31-37) Red Cell Distribution Width 18.4 % (11.5-14.5) H Platelet Count 271 x10^3/uL (140-400) Neutrophils (%) (Auto) 61 % (31-73) Lymphocytes (%) (Auto) 28 % (24-48) Monocytes (%) (Auto) 9 % (0-9) Eosinophils (%) (Auto) 1 % (0-3) Basophils (%) (Auto) 1 % (0-3) Neutrophils # (Auto) 3.9 x10^3uL (1.8-7.7) Lymphocytes # (Auto) 1.8 x10^3/uL (1.0-4.8) Monocytes # (Auto) 0.6 x10^3/uL (0.0-1.1) Eosinophils # (Auto) 0.0 x10^3/uL (0.0-0.7) Basophils # (Auto) 0.1 x10^3/uL (0.0-0.2) Prothrombin Time 16.9 SEC (11.7-14.0) H Prothrombin Time INR 1.4 (0.8-1.1) H Sodium Level 144 mmol/L (136-145) Potassium Level 4.3 mmol/L (3.5-5.1) Chloride Level 108 mmol/L (98-107) H Carbon Dioxide Level 26 mmol/L (21-32) Anion Gap 10 (6-14) Blood Urea Nitrogen 16 mg/dL (7-20) Creatinine 1.1 mg/dL (0.6-1.0) H Estimated GFR (Cockcroft-Gault) 62.9 BUN/Creatinine Ratio 15 (6-20) Glucose Level 111 mg/dL (70-99) H Calcium Level 8.2 mg/dL (8.5-10.1) L Total Bilirubin 1.3 mg/dL (0.2-1.0) H Aspartate Amino Transferase (AST) 41 U/L (15-37) H Alanine Aminotransferase (ALT) 33 U/L (14-59) Alkaline Phosphatase 151 U/L (46-116) H Troponin I Quantitative 0.046 ng/mL (0.000-0.055) ED-Bph-W-Type Natriuretic Peptide 31192 pg/mL (0-124) H Total Protein 6.4 g/dL (6.4-8.2) Albumin 2.2 g/dL (3.4-5.0) L Albumin/Globulin Ratio 0.5 (1.0-1.7) L Laboratory Tests 06/20/18 21:42 Laboratory Tests 06/20/18 21:42 EKG EKG EKG is very difficult to interpret tried for a total of 30 minutes in the emergency room to get these 2 EKGs on my very limited review I don't see an obvious ST elevation [place] but again is extremely challenging to interpret of note the patient is not having any chest pain and has been symptomatic for a week now with a negative troponin and actually a cardiac catheter last month that showed no significant coronary artery disease so my suspicion for acute ischemia is quite low there is probably sinus rhythm but again that is almost impossible to tell with certainty on the few beats that are interpretable I don' t see any ST elevation but again it is almost impossible to tell for sure QRS looks narrow[] Radiology/Procedures Radiology/Procedures PROCEDURE: PORTABLE CHEST 1V AP chest. HISTORY: Short of breath AP view was taken of the chest. The heart is markedly enlarged. There is mild pulmonary vascular congestion. There are no confluent infiltrates. There is a possible small right effusion. Impressions: IMPRESSION: 1. Cardiomegaly. 2. Mild vascular congestion.[] Course & Med Decision Making Course & Med Decision Making Pertinent Labs and Imaging studies reviewed. (See chart for details) Pt presents to ER with tachycardia, tachypnea, severe shortness of breath, weight gain in context of recent CHF diagnosis. Pt denies CP, f/c/n/v. Pt becomes severely short of breath during physical examination and movement. CXR demonstrated vascular congestion and pleural effusion. Currently suspecting acute decompensated heart failure with reduced ejection fraction. Will get cardiac workup, and admit for diuresis and monitoring. I spoke with Dr. Mcgraw certified recreational therapist for Dr. WALKER at this point we'll plan to admit to the hospital for IV Lasix observation and cardiology consultation. On reevaluation the emergency room the patient was satting 94% on 2 L oxygen and blood pressure was 141/100 check she looked slightly better still mildly tachypneic but alert and oriented otherwise [] Dragon Disclaimer Dragon Disclaimer This electronic medical record was generated, in whole or in part, using a voice recognition dictation system. Departure Departure Impression: Primary Impression: CHF (congestive heart failure) Disposition: ADMITTED INPATIENT Admitting Physician: Taisha Mcgraw Condition: GUARDED Referrals: KYLAH WALKER MD (PCP) DICK PERALTA MD Jun 20, 2018 22:08
[2018-06-20 22:09] LABS: BASO # 0.1 x10^3/uL (0.0-0.2); BASO % 1 % (0-3); EOS % 1 % (0-3); HEMATOCRIT 38.4 % (36.0-47.0); LYMPH # 1.8 x10^3/uL (1.0-4.8); LYMPH % 28 % (24-48); MEAN CORPUSCULAR HEMOGLOBIN 24 pg (25-35); MEAN CORPUSCULAR HGB CONC 31 g/dL (31-37); MEAN CORPUSCULAR VOLUME 75 fL (79-100); MONO # 0.6 x10^3/uL (0.0-1.1); MONO % 9 % (0-9); NEUT # 3.9 x10^3uL (1.8-7.7); NEUT % 61 % (31-73); PLATELET COUNT 271 x10^3/uL (140-400); RED BLOOD COUNT 5.11 x10^6/uL (3.50-5.40); RED CELL DISTRIBUTION WIDTH 18.4 % (11.5-14.5); WHITE BLOOD COUNT 6.5 x10^3/uL (4.0-11.0)
[2018-06-20 22:13] LABS: PROTHROMBIN TIME PATIENT 16.9 SEC (11.7-14.0)
[2018-06-20 22:19] LABS: CALCIUM 8.2 mg/dL (8.5-10.1); CREATININE 1.1 mg/dL (0.6-1.0); GFR 62.9; POTASSIUM 4.3 mmol/L (3.5-5.1)
[2018-06-20 22:25] LABS: ALBUMIN 2.2 g/dL (3.4-5.0); ALBUMIN/GLOBULIN RATIO 0.5 (1.0-1.7); TOTAL BILIRUBIN 1.3 mg/dL (0.2-1.0); TOTAL PROTEIN 6.4 g/dL (6.4-8.2)
[2018-06-20] MEDS ORDERED: NITROGLYCERIN OINT 1 GM PACKET. TP ONE (23:00)
[2018-06-20] MEDS ORDERED: FUROSEMIDE 20 MG/2 ML VIAL. IVP ONE (23:00)
[2018-06-20 23:41] VITALS: BP 131/74
[2018-06-21] VITALS (13 sets, daily range): BP systolic 97–145; BP diastolic 63–93
[2018-06-21] MEDS ORDERED: FUROSEMIDE 20 MG/2 ML VIAL. IVP ONE
[2018-06-21 06:26] LABS: ALBUMIN/GLOBULIN RATIO 0.6 (1.0-1.7); CALCIUM 7.8 mg/dL (8.5-10.1); GFR 70.2; POTASSIUM 4.2 mmol/L (3.5-5.1); TOTAL BILIRUBIN 0.9 mg/dL (0.2-1.0); TOTAL PROTEIN 5.6 g/dL (6.4-8.2)
[2018-06-21] MEDS: FUROSEMIDE 40 MG/4 ML VIAL. IVP SCH ×3 (08:33→14:12)
--- NOTE | 2018-06-21 10:00 | EKG ---
[facility] [address] [place] [address] Test Date: 2018-06-21 Test Time: 09:12:05 Pat Name: DANETTE VILLALBA Department: Room: 260 1 Gender: F [employer]: : 1965 Requested By: DICK PERALTA Order Number: [id number] Reading MD: Randy Parekh MD Measurements Intervals [place] Rate: 102 P: 28 MI: 116 QRS: 66 QRSD: 80 T: -160 QT: 362 QTc: 476 Interpretive Statements SINUS TACHYCARDIA NON-SPECIFIC ST/T CHANGES Electronically Signed On 06-21-2018 18:01:16 CDT by Randy Parekh MD
[2018-06-21] MEDS ORDERED: ACETAMINOPHEN 325 MG TABLET. PO PRN (10:15)
--- NOTE | 2018-06-21 10:29 | EKG ---
[facility] [address] [place] [address] Test Date: 2018-06-20 Test Time: 22:54:07 Pat Name: DANETTE VILLALBA Department: Room: 260 1 Gender: F Education Reviewer: [id number] : 1965 Requested By: DICK PERALTA Order Number: [id number] Reading MD: Patrick Mc Measurements Intervals [place] Rate: 169 P: [place]: QRS: 162 QRSD: 88 T: -124 QT: 302 QTc: 512 Interpretive Statements SINUS TACHYCARDIA ST ABNORMALITY, POSSIBLE LATERAL SUBENDOCARDIAL INJURY ABNORMAL ECG Electronically Signed On 06-29-2018 12:44:11 CDT by Patrick Mc
--- NOTE | 2018-06-21 10:29 | EKG ---
[facility] [address] [place] [address] Test Date: 2018-06-20 Test Time: 21:35:16 Pat Name: DANETTE VILLALBA Department: Room: 260 1 Gender: F Stand In: : 1965 Requested By: DICK PERALTA Order Number: [id number] Reading MD: Patrick Mc Measurements Intervals [place] Rate: 195 P: [place]: QRS: 145 QRSD: 80 T: 128 QT: 270 QTc: 491 Interpretive Statements SINUS TACHYCARDIA QRS(T) CONTOUR ABNORMALITY CONSISTENT WITH HIGH LATERAL INFARCT Electronically Signed On 06-29-2018 12:43:15 CDT by Patrick Mc
[2018-06-21] MEDS ORDERED: LISINOPRIL 10 MG TABLET PO SCH (10:30)
[2018-06-21] MEDS ORDERED: METOPROLOL SUCC 24HR ER 50 MG TAB.ER.24H. PO SCH (10:30)
[2018-06-21] MEDS: ASPIRIN ENTERIC COATED 81 MG TABLET.DR. PO SCH (10:45)
[2018-06-21] MEDS: ENOXAPARIN 40 MG/0.4 ML SYRINGE. SQ SCH (10:46)
[2018-06-21] MEDS: SPIRONOLACTONE 25 MG TABLET PO SCH (10:46)
--- NOTE | 2018-06-21 12:06 | HP ---
ADMIT DATE: 06/21/2018 ADMITTING PHYSICIAN: Chantale Prakash MD HISTORY OF PRESENT ILLNESS: This 52-year-old female who has a history of severe congestive heart failure with ejection fraction of 10-15% suddenly gained weight, about 22 pounds in one week, increasing from 210 to 232 pounds. The patient came to the Emergency Room with increased swelling of the extremities and dyspnea. The patient denied any cold, cough, congestion, chest pains or palpitations. She does admit to being short of breath. She is a poor historian and has difficulty talking due to dyspnea. REVIEW OF SYSTEMS: As noted above and no complaints of abdominal pain, diarrhea or constipation. Unable to do full systems review because of the patient's shortness of breath and language barrier. PAST MEDICAL HISTORY: The patient was last admitted in 05/2018 with history of [id number] congestive heart failure with also hypertension and arthritis. Her last echocardiogram showed ejection fraction of 20%. She had a cardiac catheterization at that time and it was negative for any stenosis. PAST SURGICAL HISTORY: Cardiac catheterization in 05/2018 negative for stenosis. ALLERGIES: None known. MEDICATIONS: Reviewed and reconciled. SOCIAL HISTORY: No history of smoking, alcoholism or drug abuse. FAMILY HISTORY: Positive for hypertension and heart disease. PHYSICAL EXAMINATION: GENERAL: The patient is a middle-aged female who is alert, oriented and in moderate respiratory distress. She is morbidly obese. She has severe anasarca. She is on oxygen by nasal cannula 3 liters per minute. VITAL SIGNS: Temperature 97.9, pulse 102 per minute, respirations 18 per minute, blood pressure 121/75 mmHg. The patient is alert and oriented. LUNGS: Decreased breath sounds at bases and the patient is in moderate distress with moderate tachypnea. Occasional basal rales noted. CARDIOVASCULAR: S1, S2 regular, tachycardia present. ABDOMEN: Soft, nontender, no guarding, no rigidity. Bowel sounds present. Abdomen is obese with likely ascites. EXTREMITIES: 4+ edema. The patient has generalized anasarca. CENTRAL NERVOUS SYSTEM: Alert and oriented, generalized weakness. LABORATORY FINDINGS: WBC count 6.5, hemoglobin 12. Yesterday, sodium was 144, potassium 4.3, BUN 16, creatinine 1.1, total bilirubin is 1.3, alkaline phosphatase 151. BNP is 16,155. Albumin 2.2, total protein is 6.4. Chest x-ray shows mild vascular congestion and cardiomegaly. Sodium is 146 today, potassium is 4.3, albumin is 2.2. IMPRESSION: 1. Acute on chronic systolic congestive heart failure. 2. Hypertension. 3. Morbid obesity. 4. Anasarca. 5. Acute hypoxic respiratory failure. 6. Severe protein-calorie malnutrition. 7. Osteoarthritis. PLAN: Recheck labs in a.m. Consult Dr. Parekh for cardiology evaluation and management. The patient is on IV Lasix b.i.d. However, her sodium is increasing. She may need other ways of treating the congestive heart failure. Prognosis is extremely poor. I will also consult Dr. Ana Padilla to check for sleep apnea and right heart failure and other issues related to the hypoxic respiratory failure. For details, please refer to the orders. PRANEETH LAWRENCE MD DR: KRISTAL/diony JOB#: [id number] / [id number] Chantale Morel MD
[2018-06-21] MEDS ORDERED: ENOXAPARIN 40 MG/0.4 ML SYRINGE. SQ SCH (13:45)
[2018-06-21] MEDS ORDERED: PANTOPRAZOLE 40 MG TABLET.DR. PO ONE (13:45)
--- NOTE | 2018-06-21 13:53 | PDOC ---
Provider Note Provider Note [id number] acute resp fail acute sys chf severe cm severe mr secondary pulm htn, due to chf and mr, ? ayad see orders/. MARYLOU HERNÁNDEZ MD Jun 21, 2018 13:53
--- NOTE | 2018-06-21 14:45 | CONS ---
DATE OF CONSULTATION: 06/21/2018 I was asked to see this 52-year-old lady for acute respiratory failure. HISTORY OF PRESENT ILLNESS: She is a lifelong nonsmoker. She had an echocardiogram done on 05/15/2018, which did show cardiomyopathy with ejection fraction of 10-15%, left ventricle was moderately dilated, severe mitral regurgitation, severe pulmonary hypertension with PA pressure of 73 mmHg. She underwent cardiac catheterization, no significant coronary artery disease was noted, severely elevated left-sided filling pressure was noted. She has had shortness of breath and edema for the past few weeks, which got worse for the past few days. She does have occasional cough. She denies fever, chills, runny nose or gastroesophageal reflux symptoms. She does snore. She has excessive daytime sleepiness. She has not had a sleep study. She denies chest pain. PAST MEDICAL HISTORY: Severe cardiomyopathy, severe mitral regurgitation, hypertension, hypercholesterolemia, diabetes mellitus. She presented to the Emergency Room with tachycardia and tachypnea which was improved with IV Lasix. ALLERGIES: No known drug allergies. MEDICATIONS: Currently she is on Lovenox 40 mg subcu daily, spironolactone, metoprolol, lisinopril, aspirin, Lasix 40 mg IV every 12. SOCIAL HISTORY: She is a lifelong nonsmoker. FAMILY HISTORY: Positive for hypertension. REVIEW OF SYSTEMS: As mentioned as above, other systems otherwise negative. PHYSICAL EXAMINATION: GENERAL: This is an obese lady. VITAL SIGNS: Her O2 saturation on 3 liters of oxygen is 96%, respiratory rate 18, heart rate 100, temperature 97.3, blood pressure 116/70. HEENT: Normocephalic, atraumatic. Pupils equal, round, reactive to light. Throat is clear. There is shallow oropharynx. Nose is clear. NECK: Positive JVD. No lymphadenopathy or thyromegaly. CARDIOVASCULAR: Regular rate and rhythm. Positive murmur. CHEST: Inspection is normal. LUNGS: There are bibasilar crackles, dullness at the bases. ABDOMEN: Soft and obese. Bowel sounds are good. There is no mass. EXTREMITIES: There is upper and lower extremity edema. LYMPHATICS: There is no lymphadenopathy. NEUROLOGIC: Alert and oriented x 3. SKIN: Chronic changes. LABORATORY AND DIAGNOSTIC DATA: I reviewed the following lab data: Chest x-ray shows cardiomyopathy with increased vascular marking. WBC 6.5, hemoglobin 12, platelet 271. Sodium 146, potassium 4.2, chloride 109, CO2 of 30, glucose 121, BUN 15, creatinine 1. Troponin 0.032 and 0.042. BNP 16,155. IMPRESSION: 1. Acute respiratory failure secondary to acute systolic congestive heart failure versus others. 2. Abnormal chest x-ray. 3. Acute systolic congestive heart failure. 4. Severe mitral regurgitation. 5. Severe pulmonary hypertension secondary due to systolic congestive heart failure and severe mitral regurgitation, ?ayad vs others. 6. Snoring and excessive daytime sleepiness and obesity, probable obstructive sleep apnea-hypopnea syndrome. 7. Diabetes mellitus. 8. Hypertension. 9. Hypercholesterolemia. PLAN AND RECOMMENDATIONS: 1. Titrate FiO2 to keep O2 saturation 92%. 2. I agree with IV Lasix. monitor k, cr. 3. Cardiology is consulted. 4. Lovenox for DVT prophylaxis. 5. Start Protonix for stress ulcer prophylaxis. 6. Her severe mitral regurgitation needs to be addressed by Cardiology, she may require surgery. 7. Monitor respiratory status very closely. 8. I have discussed obstructive sleep apnea-hypopnea syndrome, the importance of diagnosis and treatment, if untreated increased cardiovascular and [employer] morbidity and mortality. I do recommend a sleep study as an outpatient. She would require overnight oximetry and 6-minute walk right before discharge. 9. Lower extremity venous Doppler. 10. The findings and recommendations were discussed with the patient. She understood and agreed to proceed with the plan. I have answered all of her questions. Thank you very much for allowing me to participate in care of this very nice lady. MARYLOU HERNÁNDEZ M.D. : LOULOU/diony JOB#: [id number] / [id number] SAEED
--- NOTE | 2018-06-21 18:12 | PDOC ---
CARDIOLOGY PROGRESS NOTE SUBJECTIVE: Please see consult notes from last month for full details Briefly, 52 y.o woman with NICM and severe valvular disease. She has severe MR and moderate TR with severe pulmonary HTN. She also likely has mild cognitive impairment as she was not able to understand the complexity of her illness at last visit. She was planned for referral to for possible mitraclip and HF optimization but has not been seen over there yet. She has gained several pounds over the last week and she reports compliance with fluid restriction and her medications. Denies any chest pain. OBJECTIVE: Vital SIgns: Vital Signs Date Time Temp Pulse Resp B/P (MAP) Pulse Ox O2 Delivery O2 Flow Rate FiO2 06/21/18 15:00 98.2 96 18 97/63 (74) 100 Nasal Cannula 3.0 98.2 I & O Intake and Output 06/21/18 07:00 Intake Total 474 ml Output Total 1650 ml Balance -1176 ml Intake Oral 474 ml Output Urine Total 1650 ml Objective: a/o x 3. NAD Tachycardic, no obvious murmurs noted. Decreased breath sounds at the bases. 3+ edema of the legs and arms (essentially anasarca) non-focal neuro exam diminished pedal and radial pulses. CURRENT MEDICATIONS: Current meds: lisinopril, spironolactone, lasix, toprol XL DIAGNOSTIC TESTING: Hgb, plts, cr stable Na 146 EKG with sinus tachycardia CXR with bilateral effusions. ASSESSMENT: 1. Acute on chronic systolic HF with stage IV heart failure 2. Severe MR 3. Moderate TR 4. Severe secondary pulmonary HTN. PLAN: 1. Will start her on Milrinone therapy. 2. Cut b-kristine in half. 3. Continue iv diuretics. 4. Will plan for transfer to heart failure service in a.m. for continued optimization to determine if she is a candidate for augustus-clip procedure for her severe MR. Supportive care. GABBY NEVES MD Jun 21, 2018 18:12
--- NOTE | 2018-06-21 20:06 | RAD ---
EXAM: Bilateral lower extremity venous Doppler. HISTORY: Bilateral lower extremity pain/swelling. COMPARISON: None. FINDINGS: Grayscale and Doppler analysis of the both lower extremity deep venous systems was performed with graded compression and augmentation. The common femoral, greater saphenous, superficial femoral, popliteal and calf veins were assessed. There is no evidence of deep venous thrombosis. Visualization is limited by habitus and subcutaneous edema. IMPRESSION: 1. Limited visualization. No evidence of deep venous thrombosis. Electronically signed by: Radha Davis MD (06/21/2018 8:03 PM) [id number]
[2018-06-21] MEDS: MILRINONE 20MG/100ML PREMIX 100 ML IV PRN (20:41)
[2018-06-22 00:01] VITALS: BP 114/65
[2018-06-22 02:56] VITALS: BP 115/57
[2018-06-22 05:30] LABS: BASO # 0.1 x10^3/uL (0.0-0.2); BASO % 1 % (0-3); EOS # 0.1 x10^3/uL (0.0-0.7); EOS % 2 % (0-3); HEMATOCRIT 33.4 % (36.0-47.0); HEMOGLOBIN 10.3 g/dL (12.0-15.5); LYMPH # 1.3 x10^3/uL (1.0-4.8); LYMPH % 21 % (24-48); MEAN CORPUSCULAR HEMOGLOBIN 23 pg (25-35); MEAN CORPUSCULAR HGB CONC 31 g/dL (31-37); MEAN CORPUSCULAR VOLUME 75 fL (79-100); MONO # 0.5 x10^3/uL (0.0-1.1); MONO % 8 % (0-9); NEUT # 4.2 x10^3uL (1.8-7.7); NEUT % 68 % (31-73); PLATELET COUNT 216 x10^3/uL (140-400); RED BLOOD COUNT 4.45 x10^6/uL (3.50-5.40); RED CELL DISTRIBUTION WIDTH 17.9 % (11.5-14.5); WHITE BLOOD COUNT 6.2 x10^3/uL (4.0-11.0)
[2018-06-22 06:01] LABS: CALCIUM 7.5 mg/dL (8.5-10.1); CREATININE 0.8 mg/dL (0.6-1.0); GFR 90.8; MAGNESIUM 1.4 mg/dL (1.8-2.4); POTASSIUM 3.3 mmol/L (3.5-5.1)
[2018-06-22 07:00] VITALS: BP 123/75
[2018-06-22] MEDS ORDERED: PANTOPRAZOLE 40 MG TABLET.DR. PO SCH (07:30)
[2018-06-22] MEDS: ASPIRIN ENTERIC COATED 81 MG TABLET.DR. PO SCH (08:58)
[2018-06-22] MEDS: SPIRONOLACTONE 25 MG TABLET PO SCH (08:58)
[2018-06-22] MEDS: FUROSEMIDE 40 MG/4 ML VIAL. IVP SCH ×2 (08:58→14:28)
[2018-06-22] MEDS: ENOXAPARIN 40 MG/0.4 ML SYRINGE. SQ SCH (08:59)
[2018-06-22] MEDS ORDERED: METOPROLOL SUCC 24HR ER 25 MG TAB.ER.24H. PO SCH (09:00)
[2018-06-22] MEDS ORDERED: LISINOPRIL 5 MG TABLET. PO SCH (09:00)
--- NOTE | 2018-06-22 09:19 | NUR ---
SS following up with discharge planning. SS received call from pt's RN stating that pt needs transfer to under care of Dr. Rod León at . SS contacted transfer team, , and made request for transfer. transfer team requested that SS fax pt's face sheet for financial verification. SS faxed face sheet to [phone]. transfer team reported that they would contact Dr. León and would contact SS once completed. Pt's RN notified.
--- NOTE | 2018-06-22 10:08 | NUR ---
SS following up with [facility] transfer. transfer team contacted SS and reported that pt will be accepted under the care of Dr. Orville Ibanez at . They reported that they would contact SS when bed was available for transfer. SS contacted Radiology, [phone], and requested images be clouded to . Transfer form, packet, and ambulance form placed on chart in preparation. Pt's RN notified.
--- NOTE | 2018-06-22 10:09 | PDOC ---
PROGRESS NOTES Subjective Subjective does not understand why she keeps gaining fluid Objective Objective Vital Signs Date Time Temp Pulse Resp B/P (MAP) Pulse Ox O2 Delivery O2 Flow Rate FiO2 06/22/18 08:59 109 137/76 06/22/18 07:00 98.2 18 93 Nasal Cannula 2.0 98.2 Intake and Output 06/22/18 07:00 Intake Total 658 ml Output Total 5050 ml Balance -4392 ml Intake Oral 658 ml Output Urine Total 5050 ml Physical Exam Abdomen: Normal bowel sounds, Soft Heart: Regular rate, Other (3/6 heart murmer) Extremities: No clubbing, Other (3+edema) General: Alert HEENT: Atraumatic Lungs: Other (crackes at bases) MUSCULOSKELETAL: No deformity Neck: Supple Neuro: Normal speech Psych/Mental Status: Mental status NL Skin: No breakdown Assessment Assessment ASSESSMENT: 1. Acute on chronic systolic HF with stage IV heart failure 2. Severe MR 3. Moderate TR 4. Severe secondary pulmonary HTN. PLAN:pot 3.3. replace. mag 1.4 low , replace mello for i/o management transfer to spoke with cardiology. 1. Will start her on Milrinone therapy. 2. Cut b-kristine in half. 3. Continue iv diuretics. 4. Will plan for transfer to heart failure service in a.m. for continued optimization to determine if she is a candidate for augustus-clip procedure for her severe MR. Supportive care. Comment Review of Relevant I have reviewed the following items whit (where applicable) has been applied. Labs Laboratory Tests Test 06/21/18 11:47 06/21/18 17:11 06/22/18 05:00 Glucose (Fingerstick) 110 mg/dL (70-99) 151 mg/dL (70-99) White Blood Count 6.2 x10^3/uL (4.0-11.0) Red Blood Count 4.45 x10^6/uL (3.50-5.40) Hemoglobin 10.3 g/dL (12.0-15.5) Hematocrit 33.4 % (36.0-47.0) Mean Corpuscular Volume 75 fL (79-100) Mean Corpuscular Hemoglobin 23 pg (25-35) Mean Corpuscular Hemoglobin Concent 31 g/dL (31-37) Red Cell Distribution Width 17.9 % (11.5-14.5) Platelet Count 216 x10^3/uL (140-400) Neutrophils (%) (Auto) 68 % (31-73) Lymphocytes (%) (Auto) 21 % (24-48) Monocytes (%) (Auto) 8 % (0-9) Eosinophils (%) (Auto) 2 % (0-3) Basophils (%) (Auto) 1 % (0-3) Neutrophils # (Auto) 4.2 x10^3uL (1.8-7.7) Lymphocytes # (Auto) 1.3 x10^3/uL (1.0-4.8) Monocytes # (Auto) 0.5 x10^3/uL (0.0-1.1) Eosinophils # (Auto) 0.1 x10^3/uL (0.0-0.7) Basophils # (Auto) 0.1 x10^3/uL (0.0-0.2) Sodium Level 148 mmol/L (136-145) Potassium Level 3.3 mmol/L (3.5-5.1) Chloride Level 110 mmol/L (98-107) Carbon Dioxide Level 31 mmol/L (21-32) Anion Gap 7 (6-14) Blood Urea Nitrogen 10 mg/dL (7-20) Creatinine 0.8 mg/dL (0.6-1.0) Estimated GFR (Cockcroft-Gault) 90.8 Glucose Level 99 mg/dL (70-99) Calcium Level 7.5 mg/dL (8.5-10.1) Magnesium Level 1.4 mg/dL (1.8-2.4) Medications Current Medications Acetaminophen (Tylenol) 650 mg PRN Q6HRS PRN PO HEADACHE / TEMP Last administered on 06/21/18at 12:38; Start 06/21/18 at 10:15 Aspirin (Ecotrin) 81 mg DAILYWBKFT PO Last administered on 06/22/18at 08:58; Start 06/21/18 at 10:30 Enoxaparin Sodium (Lovenox 40mg Syringe) 40 mg DAILY SQ Last administered on at 08:59; Start 06/21/18 at 10:30 Enoxaparin Sodium (Lovenox 40mg Syringe) 40 mg Q24H SQ ; Start 06/21/18 at 13:45 ; Stop 06/21/18 at 13:45; Status DC Lisinopril (Prinivil) 5 mg DAILY PO Last administered on 06/22/18at 08:59; Start 06/22/18 at 09:00 Lisinopril (Prinivil) 10 mg DAILY PO Last administered on 06/21/18at 10:46; Start 06/21/18 at 10:30; Stop 06/21/18 at 18:14; Status DC Metoprolol Succinate (Toprol Xl) 25 mg DAILY PO Last administered on 06/22/18at 08:59; Start 06/22/18 at 09:00 Metoprolol Succinate (Toprol Xl) 50 mg DAILY PO Last administered on 06/21/18at 10:45; Start 06/21/18 at 10:30; Stop 06/21/18 at 18:14; Status DC Milrinone Lactate/ Dextrose 100 ml @ 12.247 mls/ hr CONT PRN IV SEE I/O RECORD Last administered on 06/21/18at 20:41; Start 06/21/18 at 18:15 Pantoprazole Sodium (Protonix) 40 mg 1X ONCE PO Last administered on 14:06; Start 06/21/18 at 13:45; Stop 06/21/18 at 13:46; Status DC Pantoprazole Sodium (Protonix) 40 mg DAILYAC PO Last administered on 06/22/18 08:58; Start 06/22/18 at 07:30 Spironolactone (Aldactone) 25 mg DAILY PO Last administered on 06/22/18 08:58 ; Start 06/21/18 at 10:30 Vitals/I & O Vital Sign - Last 24 Hours 06/21/18 06/21/18 06/21/18 06/21/18 10:45 10:46 11:00 15:00 Temp 97.3 98.2 97.3 98.2 Pulse 102 102 103 96 Resp 18 18 B/P (MAP) 121/75 121/75 116/70 (85) 97/63 (74) Pulse Ox 100 100 O2 Delivery Nasal Cannula Nasal Cannula O2 Flow Rate 3.0 3.0 06/21/18 06/21/18 06/21/18 06/21/18 19:11 19:54 20:45 21:00 Temp 98.2 98.2 Pulse 94 Resp 16 B/P (MAP) 113/64 (80) 111/73 (86) 112/68 (83) Pulse Ox 99 O2 Delivery Nasal Cannula Nasal Cannula O2 Flow Rate 2.0 3.0 06/21/18 06/21/18 06/21/18 06/21/18 21:15 21:30 21:45 22:00 B/P (MAP) 130/76 (94) 114/69 (84) 112/67 (82) 113/73 (86) 06/21/18 06/21/18 06/22/18 06/22/18 22:30 22:56 00:01 02:56 Temp 98.1 98.1 98.1 98.1 Pulse 94 96 Resp 20 18 B/P (MAP) 115/71 (86) 101/70 (80) 114/65 (81) 115/57 (76) Pulse Ox 98 97 O2 Delivery Nasal Cannula Nasal Cannula O2 Flow Rate 2.0 2.0 06/22/18 06/22/18 06/22/18 07:00 08:59 08:59 Temp 98.2 98.2 Pulse 100 109 109 Resp 18 B/P (MAP) 123/75 (91) 137/76 137/76 Pulse Ox 93 O2 Delivery Nasal Cannula O2 Flow Rate 2.0 Intake and Output 06/21/18 06/21/18 06/22/18 15:00 23:00 07:00 Intake Total 180 ml 118 ml 360 ml Output Total 1800 ml 2800 ml 450 ml Balance -1620 ml -2682 ml -90 ml KYLAH WALKER MD Jun 22, 2018 10:08
[2018-06-22] MEDS ORDERED: FURO10VI IVP (10:12)
[2018-06-22] MEDS ORDERED: ENOX40DI3 SQ (10:12)
--- NOTE | 2018-06-22 10:14 | SNU/HH DC ---
DISCHARGE ORDERS DISCHARGE INFORMATION: DISCHARGE DATE: Jun 22, 2018 FINAL DIAGNOSIS chf stage 4 ,MR+TR CONDITION ON DISCHARGE: Stable CODE STATUS: Code Status: Full POST DISCHARGE ORDERS: ACTIVITY ORDERS: Other, see below WEIGHT BEARING STATUS: Other, see below CHECKS AFTER DISCHARGE: CHECKS AFTER DISCHARGE: Check blood press - daily, Check your Temp as needed, Weigh Yourself Daily TREATMENT/EQUIPMENT ORDERS: ADAPTIVE EQUIPMENT NEEDED: None DISCHARGE MEDICATIONS: Home Meds Active Scripts Enoxaparin Sodium (ENOXAPARIN SODIUM) 40 Mg/0.4 Ml Disp.syrin, 40 MG SQ DAILY for dvt prevention for 7 Days, DIS.SYR Prov:KYLAH WALKER MD 06/22/18 Furosemide (FUROSEMIDE) 10 Mg/1 Ml Vial, 40 MG IVP BID92 for chf for 3 Days, EACH Prov:KYLAH WALKER MD 06/22/18 Aspirin (ASPIRIN EC) 81 Mg Tablet.dr, 81 MG PO DAILYWBKFT for chf for 30 Days, # 30 TAB.SR Prov:KYLAH WALKER MD 05/16/18 Spironolactone (ALDACTONE) 25 Mg Tablet, 25 MG PO DAILY for chf for 30 Days, # 30 TAB Prov:KYLAH WALKER MD 05/16/18 Lisinopril (LISINOPRIL) 10 Mg Tablet, 10 MG PO DAILY for chf for 30 Days, #30 TAB Prov:KYLAH WALKER MD 05/16/18 Metoprolol Succinate (Toprol Xl) 50 Mg Tab.er.24h, 50 MG PO DAILY for chf for 30 Days, #30 TAB.SR Prov:KYLAH WALKER MD 05/16/18 Discontinued Scripts Furosemide (LASIX) 20 Mg Tablet, 1 TAB PO DAILY for chf, #90 TAB 1 Refill Prov:KYLAH WALKER MD 05/16/18 KYLAH WALKER MD Jun 22, 2018 10:14
[2018-06-22] MEDS ORDERED: POTASSIUM CHLORIDE 20 MEQ TABLET.ER. PO ONE (10:15)
[2018-06-22] MEDS ORDERED: MAGNESIUM SULFATE 2GM 50 ML IV ONE (10:15)
[2018-06-22 11:00] VITALS: BP 130/62
--- NOTE | 2018-06-22 11:37 | PDOC ---
PULMONARY PROGRESS NOTES Subjective feels better, on RA Vitals Vital Signs Date Time Temp Pulse Resp B/P (MAP) Pulse Ox O2 Delivery O2 Flow Rate FiO2 06/22/18 08:59 109 137/76 06/22/18 07:00 98.2 18 93 Nasal Cannula 2.0 98.2 General: Alert, No acute distress Lungs: Clear Cardiovascular: S1 Abdomen: Soft Neuro Exam: Alert Extremities: Other (2+edema) Labs Laboratory Tests Test 06/20/18 21:42 06/21/18 01:15 06/21/18 05:40 06/21/18 07:15 White Blood Count 6.5 x10^3/uL (4.0-11.0) Red Blood Count 5.11 x10^6/uL (3.50-5.40) Hemoglobin 12.0 g/dL (12.0-15.5) Hematocrit 38.4 % (36.0-47.0) Mean Corpuscular Volume 75 fL (79-100) Mean Corpuscular Hemoglobin 24 pg (25-35) Mean Corpuscular Hemoglobin Concent 31 g/dL (31-37) Red Cell Distribution Width 18.4 % (11.5-14.5) Platelet Count 271 x10^3/uL (140-400) Neutrophils (%) (Auto) 61 % (31-73) Lymphocytes (%) (Auto) 28 % (24-48) Monocytes (%) (Auto) 9 % (0-9) Eosinophils (%) (Auto) 1 % (0-3) Basophils (%) (Auto) 1 % (0-3) Neutrophils # (Auto) 3.9 x10^3uL (1.8-7.7) Lymphocytes # (Auto) 1.8 x10^3/uL (1.0-4.8) Monocytes # (Auto) 0.6 x10^3/uL (0.0-1.1) Eosinophils # (Auto) 0.0 x10^3/uL (0.0-0.7) Basophils # (Auto) 0.1 x10^3/uL (0.0-0.2) Prothrombin Time 16.9 SEC (11.7-14.0) Prothromb Time International Ratio 1.4 (0.8-1.1) Sodium Level 144 mmol/L (136-145) 146 mmol/L (136-145) Potassium Level 4.3 mmol/L (3.5-5.1) 4.2 mmol/L (3.5-5.1) Chloride Level 108 mmol/L (98-107) 109 mmol/L (98-107) Carbon Dioxide Level 26 mmol/L (21-32) 30 mmol/L (21-32) Anion Gap 10 (6-14) 7 (6-14) Blood Urea Nitrogen 16 mg/dL (7-20) 15 mg/dL (7-20) Creatinine 1.1 mg/dL (0.6-1.0) 1.0 mg/dL (0.6-1.0) Estimated GFR (Cockcroft-Gault) 62.9 70.2 BUN/Creatinine Ratio 15 (6-20) 15 (6-20) Glucose Level 111 mg/dL (70-99) 121 mg/dL (70-99) Calcium Level 8.2 mg/dL (8.5-10.1) 7.8 mg/dL (8.5-10.1) Total Bilirubin 1.3 mg/dL (0.2-1.0) 0.9 mg/dL (0.2-1.0) Aspartate Amino Transf (AST/SGOT) 41 U/L (15-37) 34 U/L (15-37) Alanine Aminotransferase (ALT/SGPT) 33 U/L (14-59) 32 U/L (14-59) Alkaline Phosphatase 151 U/L (46-116) 133 U/L (46-116) Troponin I Quantitative 0.046 ng/mL (0.000-0.055) 0.032 ng/mL (0.000-0.055) 0.042 ng/mL (0.000-0.055) PB-Lpb-V-Type Natriuretic Peptide 95368 pg/mL (0-124) Total Protein 6.4 g/dL (6.4-8.2) 5.6 g/dL (6.4-8.2) Albumin 2.2 g/dL (3.4-5.0) 2.0 g/dL (3.4-5.0) Albumin/Globulin Ratio 0.5 (1.0-1.7) 0.6 (1.0-1.7) Glucose (Fingerstick) 158 mg/dL (70-99) Test 06/21/18 11:47 06/21/18 17:11 06/22/18 05:00 Glucose (Fingerstick) 110 mg/dL (70-99) 151 mg/dL (70-99) White Blood Count 6.2 x10^3/uL (4.0-11.0) Red Blood Count 4.45 x10^6/uL (3.50-5.40) Hemoglobin 10.3 g/dL (12.0-15.5) Hematocrit 33.4 % (36.0-47.0) Mean Corpuscular Volume 75 fL (79-100) Mean Corpuscular Hemoglobin 23 pg (25-35) Mean Corpuscular Hemoglobin Concent 31 g/dL (31-37) Red Cell Distribution Width 17.9 % (11.5-14.5) Platelet Count 216 x10^3/uL (140-400) Neutrophils (%) (Auto) 68 % (31-73) Lymphocytes (%) (Auto) 21 % (24-48) Monocytes (%) (Auto) 8 % (0-9) Eosinophils (%) (Auto) 2 % (0-3) Basophils (%) (Auto) 1 % (0-3) Neutrophils # (Auto) 4.2 x10^3uL (1.8-7.7) Lymphocytes # (Auto) 1.3 x10^3/uL (1.0-4.8) Monocytes # (Auto) 0.5 x10^3/uL (0.0-1.1) Eosinophils # (Auto) 0.1 x10^3/uL (0.0-0.7) Basophils # (Auto) 0.1 x10^3/uL (0.0-0.2) Sodium Level 148 mmol/L (136-145) Potassium Level 3.3 mmol/L (3.5-5.1) Chloride Level 110 mmol/L (98-107) Carbon Dioxide Level 31 mmol/L (21-32) Anion Gap 7 (6-14) Blood Urea Nitrogen 10 mg/dL (7-20) Creatinine 0.8 mg/dL (0.6-1.0) Estimated GFR (Cockcroft-Gault) 90.8 Glucose Level 99 mg/dL (70-99) Calcium Level 7.5 mg/dL (8.5-10.1) Magnesium Level 1.4 mg/dL (1.8-2.4) Laboratory Tests Test 06/21/18 11:47 06/21/18 17:11 06/22/18 05:00 Glucose (Fingerstick) 110 mg/dL (70-99) 151 mg/dL (70-99) White Blood Count 6.2 x10^3/uL (4.0-11.0) Red Blood Count 4.45 x10^6/uL (3.50-5.40) Hemoglobin 10.3 g/dL (12.0-15.5) Hematocrit 33.4 % (36.0-47.0) Mean Corpuscular Volume 75 fL (79-100) Mean Corpuscular Hemoglobin 23 pg (25-35) Mean Corpuscular Hemoglobin Concent 31 g/dL (31-37) Red Cell Distribution Width 17.9 % (11.5-14.5) Platelet Count 216 x10^3/uL (140-400) Neutrophils (%) (Auto) 68 % (31-73) Lymphocytes (%) (Auto) 21 % (24-48) Monocytes (%) (Auto) 8 % (0-9) Eosinophils (%) (Auto) 2 % (0-3) Basophils (%) (Auto) 1 % (0-3) Neutrophils # (Auto) 4.2 x10^3uL (1.8-7.7) Lymphocytes # (Auto) 1.3 x10^3/uL (1.0-4.8) Monocytes # (Auto) 0.5 x10^3/uL (0.0-1.1) Eosinophils # (Auto) 0.1 x10^3/uL (0.0-0.7) Basophils # (Auto) 0.1 x10^3/uL (0.0-0.2) Sodium Level 148 mmol/L (136-145) Potassium Level 3.3 mmol/L (3.5-5.1) Chloride Level 110 mmol/L (98-107) Carbon Dioxide Level 31 mmol/L (21-32) Anion Gap 7 (6-14) Blood Urea Nitrogen 10 mg/dL (7-20) Creatinine 0.8 mg/dL (0.6-1.0) Estimated GFR (Cockcroft-Gault) 90.8 Glucose Level 99 mg/dL (70-99) Calcium Level 7.5 mg/dL (8.5-10.1) Magnesium Level 1.4 mg/dL (1.8-2.4) Medications Active Scripts Medications Dose Route/Sig Max Daily Dose Days Date Category Enoxaparin Sodium 40 Mg/0.4 Ml Disp.syrin 40 Mg SQ DAILY 7 06/22/18 Rx Furosemide 10 Mg/1 Ml Vial 40 Mg IVP BID92 3 06/22/18 Rx Aspirin Ec (Aspirin) 81 Mg Tablet.dr 81 Mg PO DAILYWBKFT 30 05/16/18 Rx Aldactone (Spironolactone) 25 Mg Tablet 25 Mg PO DAILY 30 05/16/18 Rx Lisinopril 10 Mg Tablet 10 Mg PO DAILY 30 05/16/18 Rx Toprol Xl (Metoprolol Succinate) 50 Mg Tab.er.24h 50 Mg PO DAILY 30 05/16/18 Rx Impression . 1. Acute respiratory failure secondary to acute systolic congestive heart failure 2. Abnormal chest x-ray. 3. Acute systolic congestive heart failure. 4. Severe mitral regurgitation. 5. Severe pulmonary hypertension secondary due to systolic congestive heart failure and severe mitral regurgitation, 6. Snoring and excessive daytime sleepiness and obesity, probable obstructive sleep apnea-hypopnea syndrome. 7. Diabetes mellitus. 8. Hypertension. 9. Hypercholesterolemia. Plan . 1. Titrate FiO2 to keep O2 saturation 92%.on RA now 2. I agree with IV Lasix. monitor k, cr. 3. Cardiology rec 4. Lovenox for DVT prophylaxis. 6. Her severe mitral regurgitation needs to be addressed by Cardiology, she may require surgery. 7. Monitor respiratory status very closely. 8. I have discussed obstructive sleep apnea-hypopnea syndrome, the importance of diagnosis and treatment, if untreated increased cardiovascular and [employer] morbidity and mortality. I do recommend a sleep study as an outpatient. She would require overnight oximetry and 6-minute walk right before discharge. ELSA HENNESSY MD Jun 22, 2018 11:37
--- NOTE | 2018-06-22 12:00 | PDOC ---
CARDIOLOGY PROGRESS NOTE SUBJECTIVE: Still has poor insight regarding her medical issues. OBJECTIVE: Vital SIgns: Vital Signs Date Time Temp Pulse Resp B/P (MAP) Pulse Ox O2 Delivery O2 Flow Rate FiO2 06/22/18 08:59 109 137/76 06/22/18 07:00 98.2 18 93 Nasal Cannula 2.0 98.2 I & O Intake and Output 06/22/18 07:00 Intake Total 658 ml Output Total 5050 ml Balance -4392 ml Intake Oral 658 ml Output Urine Total 5050 ml Objective: Anasarca persists. Mildly tachycardic. Mild MR heard Bibasilar rales. CURRENT MEDICATIONS: Current Medications Medications (Trade) Dose Ordered Sig/Cindy Start Time Stop Time Status Last Admin Dose Admin Acetaminophen (Tylenol) 650 mg PRN Q6HRS PRN 06/21/18 10:15 06/21/18 12:38 650 MG Aspirin (Ecotrin) 81 mg DAILYWBKFT 06/21/18 10:30 06/22/18 08:58 81 MG Enoxaparin Sodium (Lovenox 40mg Syringe) 40 mg Q24H 06/21/18 13:45 06/21/18 13:45 DC Furosemide (Lasix) 40 mg BID92 06/21/18 09:00 06/22/18 08:58 40 MG Lisinopril (Prinivil) 5 mg DAILY 06/22/18 09:00 06/22/18 08:59 5 MG Magnesium Sulfate 50 ml @ 25 mls/hr 1X ONCE 06/22/18 10:15 06/22/18 12:14 06/22/18 10:44 25 MLS/HR Metoprolol Succinate (Toprol Xl) 25 mg DAILY 06/22/18 09:00 06/22/18 08:59 25 MG Milrinone Lactate/ Dextrose 100 ml @ 12.247 mls/ hr CONT PRN 06/21/18 18:15 06/21/18 20:41 4.082 MLS/HR Nitroglycerin (Nitro-Bid Oint) 1 inch 1X ONCE 06/20/18 23:00 06/20/18 23:01 DC 06/20/18 22:37 1 INCH Pantoprazole Sodium (Protonix) 40 mg 1X ONCE 06/21/18 13:45 06/21/18 13:46 DC 06/21/18 14:06 40 MG Potassium Chloride (Klor-Con) 20 meq DAILYWBKFT 06/23/18 08:00 Spironolactone (Aldactone) 25 mg DAILY 06/21/18 10:30 06/22/18 08:58 25 MG DIAGNOSTIC TESTING: Cr stable K 3.3 ASSESSMENT: 1. Severe NICM 2. Severe MR 3. Cardiogenic shock. PLAN: 1. Plan for transfer to [facility] for optimization, consideration of augustus clip. Discussed with [facility] heart failure service. PCP aware. Thanks GABBY NEVES MD Jun 22, 2018 12:00
[2018-06-22 15:20] VITALS: BP 125/70
[2018-06-22] MEDS: MILRINONE 20MG/100ML PREMIX 100 ML IV PRN (17:52)
[2018-06-23] MEDS ORDERED: POTASSIUM CHLORIDE 20 MEQ TABLET.ER. PO SCH (08:00)
--- NOTE | 2018-06-23 15:42 | PDOC ---
Provider Note Provider Note Discharge summary dictated.#[id number] KYLAH WALKER MD Jun 23, 2018 15:41
--- NOTE | 2018-06-23 16:17 | DS ---
DATE OF DISCHARGE: 06/22/2018 REASON FOR ADMISSION TO THE HOSPITAL: Anasarca. CONSULTATIONS: Cardiology, Dr. Parekh; Dr. Dyer, Pulmonology. PROCEDURES DONE: None. HOSPITAL COURSE: The patient is a 52-year-old female, the patient was admitted 2 months ago for new onset of congestive heart failure. The patient had complete workup done including cardiac catheterization, echocardiogram, which shows nonischemic cardiomyopathy, severe valvular disease, mitral regurgitation and moderate tricuspid regurgitation with severe pulmonary hypertension. The patient is noncompliant with medications. She continues to have anasarca in spite of optimal medical treatment. The patient was referred to for MitraClip and CHF management with ejection fraction of around 20%. FINAL DIAGNOSES: 1. Severe nonischemic cardiomyopathy, ejection fraction 20%. 2. severe Mitral regurgitation and tricuspid regurgitation. 3. History of behavioral problems, sees mental health professionals. 4. Poor insight into her medical condition. DISPOSITION: The patient is discharged to for specialty treatment including MitraClip and CHF treatment. The patient would also need a sleep study as outpatient. KYLAH WALKER MD DR: PAUL/diony JOB#: [id number] / [id number] SAEED
== END 2018-06-22 18:36 | disposition short-term general hospital (02) | DRG 291 ==
LOC: ER 20:54 → 2 SOUTH 21:30
PROVIDERS: ADMIT Internal Medicine; ATTEND Internal Medicine
DX: I11.0 Hypertensive heart disease with heart failure (principal); J96.01 Acute respiratory failure with hypoxia; E43 Unspecified severe protein-calorie malnutrition; R57.0 Cardiogenic shock; I50.23 Acute on chronic systolic (congestive) heart failure; I42.9 Cardiomyopathy, unspecified; E11.9 Type 2 diabetes mellitus without complications; E66.01 Morbid (severe) obesity due to excess calories; E78.00 Pure hypercholesterolemia, unspecified; G31.84 Mild cognitive impairment of uncertain or unknown etiology; G47.33 Obstructive sleep apnea (adult) (pediatric); I08.1 Rheumatic disorders of both mitral and tricuspid valves; I27.20 Pulmonary hypertension, unspecified; M19.90 Unspecified osteoarthritis, unspecified site; Z79.4 Long term (current) use of insulin; Z82.49 Family history of ischemic heart disease and other diseases of the circulatory system; Z91.14 Patient's other noncompliance with medication regimen; Z68.33 Body mass index [BMI] 33.0-33.9, adult
CPT/HCPCS: 36415; 71045; 80048; 80053; 82962; 83735; 83880; 84484; 85025; 85610; 93005; 93970; 96374; J1650; J1940; J2260; J3475; 99285-25